=== PATIENT | female | born 1995 | race American Indian/Alaskan Native ===

== ENCOUNTER 2019-08-19 04:05 | Outpatient (CLI) | payer MEDICAID ==
[2019-08-19 06:45] VITALS: BP 114/57
== END 2019-08-19 07:12 | disposition home or self-care (01) ==
LOC: TRG 04:05
PROVIDERS: ATTEND Obstetrics & Gynecology
DX: O47.1 False labor at or after 37 completed weeks of gestation (principal); Z3A.39 39 weeks gestation of pregnancy
CPT/HCPCS: 59025

== ENCOUNTER 2019-08-30 02:40 | Inpatient (IN) | payer MEDICAID ==
[2019-08-30] MEDS ORDERED: ePHEDrine SULFATE 50 MG/1 ML INJ IV PRN (05:53)
[2019-08-30] MEDS ORDERED: fentaNYL 100 MCG/2 ML INJ IV PRN (05:53)
[2019-08-30] MEDS ORDERED: MINERAL OIL 30 ML ORAL LIQD PO PRN (05:53)
[2019-08-30] MEDS ORDERED: LIDOCAINE (2%) 20 MG/1 ML VIAL 20 ML MDV INFILTRATI ONE (05:53)
[2019-08-30] MEDS ORDERED: BUTORPHANOL 2 MG/1 ML INJ IV PRN (05:53)
[2019-08-30] MEDS ORDERED: ONDANSETRON 4 MG/2 ML INJ IV PRN ×2 (05:53→08:52)
[2019-08-30] MEDS ORDERED: TERBUTALINE 1 MG/1 ML INJ IVP PRN (05:53)
[2019-08-30] MEDS ORDERED: TERBUTALINE 1 MG/1 ML INJ SUB-Q PRN (05:53)
[2019-08-30] MEDS ORDERED: LACTATED RINGERS 1,000 ML IV SCH (06:00)
[2019-08-30] MEDS ORDERED: OXYTOCIN DRIP 30 UNITS/500 ML BAG IV SCH (06:00)
[2019-08-30 06:25] LABS: Hematocrit 35.1 % (30.3-42.9); Hemoglobin 11.4 gm/dl (10.1-14.3); Mean Corpuscular HGB Conc 33 % (30-34); Mean Corpuscular Volume 80 fl (79-97); Platelet Count 255 K/mm3 (140-440)
[2019-08-30] MEDS ORDERED: AMPICILLIN/NS 2 GM/100 ML 2 GM/100 ML BAG IV ONE ×2 (06:58)
--- NOTE | 2019-08-30 07:47 | History and Physical Report ---
History of Present Illness Date of examination: 08/30/19 Date of admission: 08/30/19 Chief complaint: Contractions History of present illness: Pt is a 23 yo at 40.6 weeks EGA who presents with regular uterine contractions. She reports positive FM and denies LOF or vaginal bleeding. She has received care with [facility] since 30 weeks EGa. 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 She is GBS negative. Past History Past Medical History: other (scoliosis) Past Surgical History: no surgical history Family/Genetic History: other (scoliosis) Social history: no significant social history - Obstetrical History Expected Date of Delivery: 08/24/19 Actual Gestation: 40 Week(s) 6 Day(s) : 3 Para: 2 Hx # Term Pregnancies: 2 Number of Pregnancies: 0 Spontaneous Abortions: 0 Induced : 0 Number of Living Children: 2 Medications and Allergies Allergies Allergy/AdvReac Type Severity Reaction Status Date / Time No Known Allergies Allergy Verified 08/19/19 05:45 Active Meds: Active Medications Butorphanol Tartrate (Stadol) 2 mg IV Q2H PRN PRN Reason: Pain , Severe (7-10) Ephedrine Sulfate (Ephedrine Sulfate) 10 mg IV Q2M PRN PRN Reason: Hypotension Fentanyl (Sublimaze) 100 mcg IV Q2H PRN PRN Reason: Labor Pain Last Admin: 08/30/19 06:42 Dose: 100 mcg Documented by: Oxytocin/Sodium Chloride (Pitocin/Ns 20 Unit/1000ml Drip) 20 units in 1,000 mls @ 125 mls/hr IV DIRECT SIXTO Oxytocin/Sodium Chloride (Pitocin/Ns 30 Unit/500ml) 30 units in 500 mls @ 1 mls/hr IV TITR SIXTO; Protocol Lactated Ringer's (Lactated Ringers) 1,000 mls @ 125 mls/hr IV DIRECT SIXTO Last Admin: 08/30/19 06:28 Dose: 125 mls/hr Documented by: Mineral Oil (Mineral Oil) 30 ml PO QHS PRN PRN Reason: Constipation Ondansetron HCl (Zofran) 4 mg IV Q8H PRN PRN Reason: Nausea And Vomiting Terbutaline Sulfate (Brethine) 0.25 mg SUB-Q ONCE PRN PRN Reason: Hyperstimulation/Hypertonicity Terbutaline Sulfate (Brethine) 0.25 mg IVP ONCE PRN PRN Reason: Hyperstimulation/Hypertonicity Review of Systems All systems: negative Genitourinary: contractions, no vaginal bleeding, no vaginal discharge, no leakage of fluid, no genital sores - Vital Signs Vital signs: Vital Signs Temp Pulse Resp BP 98.3 F 76 18 121/66 08/30/19 03:06 08/30/19 03:06 08/30/19 03:06 08/30/19 03:06 Temp Pulse Resp BP Pulse Ox 98.3 F 85 18 132/58 08/30/19 03:06 08/30/19 07:45 08/30/19 03:06 08/30/19 07:45 - Physical Exam Lungs: Positive: Normal air movement Abdomen: Positive: soft Genitourinary (Female): Positive: normal external genitalia, normal perenium Vagina: Positive: normal moisture Uterus: Positive: enlarged, normal contour Extremities: Positive: normal - Obstetrical FHR: category 1 Uterine Contraction Monitor Mode: External Cervical Dilatation: 6 Cervical Effacement Percentage: 80 station: -2 Uterine Contraction Frequency (min): 3 Uterine Contraction Pattern: Regular Uterine Contraction Intensity: Strong/Firm Results Result Diagrams: 08/30/19 06:00 Abnormal lab results 08/30/19 Range/Units 06:00 MCH 26 L (28-32) pg RDW 17.0 H (13.2-15.2) % All other labs normal. Assessment and Plan 23 yo at 40.6 weeks EGA Active labor GBS negative Admit to L&D Expectant management Pain relief as requested Anticipate
[2019-08-30] MEDS: OXYTOCIN 20 UNIT/1000ML DRIP 20 UNITS/1,000 ML BAG IV SCH ×2 (08:45→09:28)
[2019-08-30] MEDS ORDERED: ACETAMINOPHEN 325 MG TAB PO PRN (08:52)
[2019-08-30] MEDS ORDERED: diphenhydrAMINE 25 MG CAP PO PRN (08:52)
[2019-08-30] MEDS ORDERED: PROMETHAZINE 25 MG TAB PO PRN (08:52)
[2019-08-30] MEDS ORDERED: WITCH HAZEL/ GLYCERIN PAD TP PRN (08:52)
[2019-08-30] MEDS ORDERED: LANOLIN/ZINC/DIMETHICONE (LANSINOH) 7 GM TP PRN (08:52)
[2019-08-30] MEDS ORDERED: PROMETHAZINE 25 MG RECT SUPP PR PRN (08:52)
--- NOTE | 2019-08-30 08:59 | Procedure Note ---
OB Delivery Note - Delivery Date of Delivery: 08/30/19 Surgeon: RAMO PATINO ([facility]) Estimated blood loss: 100cc - Vaginal Delivery presentation: vertex Delivery position: OA Intrapartum events: none Delivery induction: none Delivery monitor: external FHT, external uterine Route of delivery: Delivery placenta: spontaneous Delivery cord: 3 umbilical vessels Episiotomy: none Delivery laceration: none Anesthesia: none Delivery comments: Excellent maternal effort progressed to of viable female infant. Head delivered OA, restituted LOT, shoulders followed easily. Infant to maternal abdomen. Bulb suction of mouth x1. Vigorous cry. Delayed cord clamping until cessation of pulsation. Apgars 8/9. Placenta delivered spontaneously and intact by Green mechanism. Moderate clots expressed from fundal pressure. Fundus firm. Pitocin infusing. No lacerations noted. Bonding well. - A at 1 minute: 8 at 5 minutes: 9 Infant Gender: Female
[2019-08-30] MEDS: IBUPROFEN 600 MG TAB PO SCH ×2 (09:32→19:11)
[2019-08-30 20:26] LABS: Hematocrit 31.7 % (30.3-42.9); Hemoglobin 10.1 gm/dl (10.1-14.3)
[2019-08-30] MEDS ORDERED: MAGNESIUM HYDROXIDE (MOM) ORAL LIQD UDC PO PRN (22:00)
[2019-08-30] MEDS: FERROUS SULFATE 325 MG TAB PO SCH (22:11)
[2019-08-31] MEDS: FERROUS SULFATE 325 MG TAB PO SCH ×2 (01:14→13:27)
[2019-08-31] MEDS: IBUPROFEN 600 MG TAB PO SCH ×2 (01:45→13:28)
[2019-08-31] MEDS ORDERED: TETANUS,DIPH,PERTUSS(ACELL) VACCINE 0.5 ML SYRINGE IM ONE (10:30)
--- NOTE | 2019-08-31 14:04 | Progress Note ---
Assessment and Plan PPD 1 S/P . DOING WELL. PLAN FOR DISCHARGE TODAY Subjective - Subjective Date of service: 08/31/19 Patient reports: appetite normal, voiding normally, pain well controlled, ambulating normally [place]: doing well Objective - Vital Signs Latest vital signs: Vital Signs Temp Pulse Resp BP BP Pulse Ox 08/31/19 08:42 98.3 F 67 20 110/71 97 08/31/19 00:22 98.0 F 81 24 99/56 97 08/30/19 22:25 98.3 F 64 20 111/62 97 08/30/19 16:23 98.0 F 71 18 116/78 Intake and Output 08/30/19 08/31/19 08/31/19 22:59 06:59 14:59 Intake Total 480 120 Balance 480 120 Intake: Oral 480 120 Other: Total, Intake Amount 480 120 # Voids Void 1 - Exam Lungs: Present: Clear to auscultation Abdomen: Present: normal appearance, soft Uterus: Present: normal, firm Extremities: Present: normal Incision: Present: normal, dry, intact
--- NOTE | 2019-08-31 14:06 | Discharge Summary ---
Providers - Providers Date of Admission: 08/30/19 02:41 Date of discharge: 08/31/19 Attending physician: KATYA IRAHETA MD Primary care physician: KATYA IRAHETA MD Hospitalization Reason for admission: active labor Delivery: Episiotomy: none Laceration: none Other procedures: none complications: none Discharge diagnosis: IUP at term delivered Hospital course: UNREMARKABLE Condition at discharge: Good Disposition: DC-01 TO HOME OR SELFCARE Plan - Provider Discharge Summary Activity: routine, no sex for 6 weeks, no heavy lifting 4 weeks, no strenuous exercise Diet: routine Instructions: routine Additional instructions: [] Smoking cessation referral if applicable(refer to patient education folder for contact #) [] Refer to [facility]'s [facility] Booklet Call your doctor immediately for: * Fever > 100.5 * Heavy vaginal bleeding ( >1 pad per hour) * Severe persistent headache * Shortness of breath * Reddened, hot, painful area to leg or breast * Drainage or odor from incision. * Keep incision clean and dry at all times and follow doctor's instructions regarding bathing/showering - Follow up plan Follow up: KATYA IRAHETA MD [Primary Care Provider] - 6 Weeks
[2019-08-31 16:12] VITALS: BP 111/63
== END 2019-08-31 18:35 | disposition home or self-care (01) | DRG 775 ==
LOC: LD 02:40 → TRG 02:40 → LD 02:41 → TRG 02:44 → OB 11:31
PROVIDERS: ADMIT Obstetrics & Gynecology; ATTEND Obstetrics & Gynecology
PROC: 10E0XZZ Delivery of Products of Conception, External Approach (ICD-10-PCS; principal; 2019-08-30)
PROC: 3E0234Z Introduction of Serum, Toxoid and Vaccine into Muscle, Percutaneous Approach (ICD-10-PCS; 2019-08-31)
DX: O80 Encounter for full-term uncomplicated delivery (principal); Z3A.40 40 weeks gestation of pregnancy; Z37.0 Single live birth; Z23 Encounter for immunization
CPT/HCPCS: 36415; 85014; 85018; 85027; 86592; 86850; 86900; 86901; G0378; J0290; J2590; J3010; J7120

== ENCOUNTER 2019-11-17 23:59 | Emergency (ER) | payer MEDICAID ==
[2019-11-18 00:18] VITALS: BP 118/60
[2019-11-18 01:11] LABS: Hematocrit 35.8 % (30.3-42.9); Hemoglobin 11.8 gm/dl (10.1-14.3); Mean Corpuscular Volume 85 fl (79-97); Red Blood Count 4.22 M/mm3 (3.65-5.03)
[2019-11-18 01:12] LABS: Basophils % (Auto) 0.7 % (0.0-1.8); Eosinophils % (Auto) 5.4 % (0.0-4.3); Lymphocytes % (Auto) 30.4 % (13.4-35.0); Mean Corpuscular HGB Conc 33 % (30-34); Platelet Count 259 K/mm3 (140-440); Red Cell Distribution Width 20.7 % (13.2-15.2)
[2019-11-18 01:13] LABS: Basophils # (Auto) 0.1 K/mm3 (0.0-0.1); Eosinophils # (Auto) 0.5 K/mm3 (0.0-0.4); Lymphocytes # (Auto) 2.6 K/mm3 (1.2-5.4); Monocytes # (Auto) 0.7 K/mm3 (0.0-0.8)
--- NOTE | 2019-11-18 01:28 | Emergency Department Report ---
ED Female HPI - General Chief complaint: Vaginal Bleeding Stated complaint: POSSIBLE MISCARRIAGE Source: patient Mode of arrival: Ambulatory Limitations: No Limitations - History of Present Illness Initial comments: 24-year-old -[place] female presents to the emergency room for heavy vaginal bleeding that started yesterday. Patient states she went through a whole pack of pads in 1 day. Patient states that she is changing every 15 minutes. Patient's last menstrual period was 10/16/2019. Patient reports she is no longer having pelvic pain. MD Complaint: vaginal bleeding Onset/Timin -: days(s) Severity scale (0 -10): 1 Consistency: constant Are you Now?: No Last Menstrual Period: 10/16/19 EDC: 07/22/20 Associated Symptoms: denies other symptoms - Related Data Sexually active: No Allergies Allergy/AdvReac Type Severity Reaction Status Date / Time No Known Allergies Allergy Verified 08/19/19 05:45 ED Review of Systems ROS: Stated complaint: POSSIBLE MISCARRIAGE Other details as noted in HPI Comment: All other systems reviewed and negative ED Past Medical Hx - Past Medical History Previous Medical History?: No Hx Hypertension: No Hx Diabetes: No Hx Deep Vein Thrombosis: No Hx Renal Disease: No Hx Sickle Cell Disease: No Hx Seizures: No Hx Asthma: No Hx HIV: No - Surgical History Past Surgical History?: No - Social History Smoking Status: Former Smoker Substance Use Type: None ED Physical Exam - General Limitations: No Limitations General appearance: alert, in no apparent distress - Head Head exam: Present: atraumatic, normocephalic - Eye Eye exam: Present: normal appearance - ENT ENT exam: Present: mucous membranes moist - Respiratory Respiratory exam: Present: normal lung sounds bilaterally. Absent: respiratory distress - Cardiovascular Cardiovascular Exam: Present: regular rate, normal rhythm. Absent: systolic murmur, diastolic murmur, rubs, gallop - GI/Abdominal GI/Abdominal exam: Present: soft, normal bowel sounds - Extremities Exam Extremities exam: Present: normal inspection, full ROM - Back Exam Back exam: Present: normal inspection - Neurological Exam Neurological exam: Present: alert, oriented X3 - Psychiatric Psychiatric exam: Present: normal affect, normal mood - Skin Skin exam: Present: warm, dry, intact, normal color. Absent: rash ED Course Vital Signs 11/18/19 00:09 Temperature 98.7 F Pulse Rate 82 Respiratory 18 Rate Blood Pressure 118/60 O2 Sat by Pulse 96 Oximetry ED Medical Decision Making - Lab Data Result diagrams: 11/18/19 00:28 - Medical Decision Making 24-year-old -Q[place] female presents to the emergency room for heavy vaginal bleeding that started yesterday. Patient states she went through a whole pack of pads in 1 day. Patient states that she is changing every 15 minutes. Patient's last menstrual period was 10/16/2019. Patient reports she is no longer having pelvic pain. Patient's labs are stable shows negative test no signs of anemia. Patient is currently having her menstrual cycle. Patient is to follow-up with her HOSTED SERVICES ANALYST she has any further concerns. Critical care attestation.: If time is entered above; I have spent that time in minutes in the direct care of this critically ill patient, excluding procedure time. ED Disposition Clinical Impression: Abnormal bleeding in menstrual cycle Disposition: DC-01 TO HOME OR SELFCARE Is pt being admited?: No Does the pt Need Aspirin: No Condition: Stable Instructions: Menorrhagia (ED) Additional Instructions: Patient's labs are stable shows negative test no signs of anemia. Patient is currently having her menstrual cycle. Patient is to follow-up with her HOSTED SERVICES ANALYST she has any further concerns. Referrals: [facility] [Provider Group] - 3-5 Days
[2019-11-18 01:50] LABS: Bilirubin,Urine NEG (Negative); Blood,Urine LG (Negative); Color,Urine Yellow (Yellow); Mucus,Urine FEW /HPF; Protein,Urine <15 mg/dL mg/dL (Negative); RBC,Urine > 182.0 /HPF (0.0-6.0); Urobilinogen,Urine < 2.0 mg/dL (<2.0)
== END 2019-11-18 01:47 | disposition home or self-care (01) ==
LOC: ED 23:59
DX: N92.4 Excessive bleeding in the premenopausal period (principal); Z87.891 Personal history of nicotine dependence
CPT/HCPCS: 36415; 81001; 84702; 84703; 85025; 86900; 86901; 87086

== ENCOUNTER 2021-05-12 05:38 | Inpatient (IN) | payer MEDICAID ==
[2021-05-12] MEDS ORDERED: TERBUTALINE 1 MG/1 ML INJ SUB-Q PRN (11:00)
[2021-05-12] MEDS ORDERED: ONDANSETRON 4 MG/2 ML INJ IV PRN ×2 (11:00→21:18)
[2021-05-12] MEDS ORDERED: LACTATED RINGERS 1,000 ML IV SCH (11:00)
[2021-05-12] MEDS ORDERED: NALOXONE 0.4 MG/1 ML INJ IV PRN (11:00)
[2021-05-12] MEDS ORDERED: CARBOPROST TROMETHAMINE 250 MCG/1 ML INJ IM PRN (11:00)
[2021-05-12] MEDS ORDERED: ePHEDrine SULFATE 50 MG/1 ML INJ IV PRN (11:00)
[2021-05-12] MEDS ORDERED: miSOPROStol 200 MCG TAB PR PRN (11:00)
[2021-05-12] MEDS ORDERED: ACETAMINOPHEN 325 MG TAB PO PRN (11:00)
[2021-05-12] MEDS ORDERED: LIDOCAINE (2%) 20 MG/1 ML VIAL 20 ML MDV INFILTRATI SCH (11:00)
[2021-05-12] MEDS ORDERED: LOPERAMIDE 2 MG CAP PO PRN (11:00)
[2021-05-12] MEDS ORDERED: METHYLERGONOVINE MALEATE 0.2 MG/ML VIAL IM PRN (11:00)
[2021-05-12] MEDS ORDERED: MINERAL OIL 30 ML ORAL LIQD PO PRN (11:00)
[2021-05-12] MEDS ORDERED: BUTORPHANOL 2 MG/1 ML INJ IV PRN (11:00)
[2021-05-12] MEDS ORDERED: OXYTOCIN DRIP 30 UNITS/500 ML BAG IV SCH ×3 (11:00→21:18)
[2021-05-12] MEDS ORDERED: OXYTOCIN 10 UNIT/1 ML INJ IM PRN (11:00)
[2021-05-12] MEDS: fentaNYL 100 MCG/2 ML INJ IV PRN ×2 (14:48→18:15)
[2021-05-12 16:55] LABS: Hematocrit 31.8 % (30.3-42.9); Hemoglobin 10.3 gm/dl (10.1-14.3); Mean Corpuscular HGB Conc 33 % (30-34); Mean Corpuscular Volume 79 fl (79-97); Platelet Count 297 K/mm3 (140-440); Red Blood Count 4.01 M/mm3 (3.65-5.03); Red Cell Distribution Width 18.3 % (13.2-15.2)
--- NOTE | 2021-05-12 18:22 | History and Physical Report ---
History of Present Illness Date of examination: 05/12/21 Date of admission: 05/12/21 10:46 Chief complaint: contractions History of present illness: 25 year old THANH 05/15/21 at 39w4d who presents with regular painful contractions. Her cervix remained 4 cm over prolonged period of observation, then she began having more frequent contractions and progressed to 9 cm. She has had care at [facility] since 17 wks complicated by genital herpes without lesion or prodrome. She is GBS negative. Past History Past Medical History: other (Scoliosos) Past Surgical History: no surgical history ACIDIZER History: herpes (no lesion or prodrome ) Family/Genetic History: none Social history: no significant social history - Obstetrical History Expected Date of Delivery: 05/15/21 Actual Gestation: 39 Week(s) 5 Day(s) : 4 Para: 3 Hx # Term Pregnancies: 3 Number of Pregnancies: 0 Spontaneous Abortions: 0 Induced : 0 Number of Living Children: 3 Medications and Allergies Allergies Allergy/AdvReac Type Severity Reaction Status Date / Time No Known Allergies Allergy Verified 08/19/19 05:45 Home Medications Medication Instructions Recorded Confirmed Last Taken Type No Known Home Medications [No 05/12/21 05/12/21 Unknown History Reported Home Medications] Active Meds: Active Medications Acetaminophen (Acetaminophen 325 Mg Tab) 650 mg PO Q4H PRN PRN Reason: Pain, Mild (1-3) Butorphanol Tartrate (Butorphanol 2 Mg/1 Ml Inj) 1 mg IV Q2H PRN PRN Reason: Pain, Moderate(4-6) LABOR PAIN Carboprost Tromethamine (Carboprost Tromethamine 250 Mcg/1 Ml Inj) 250 mcg IM ONCE PRN PRN Reason: Uterine Bleeding Ephedrine Sulfate (Ephedrine Sulfate 50 Mg/1 Ml Inj) 10 mg IV Q2M PRN PRN Reason: Hypotension Fentanyl (Fentanyl 100 Mcg/2 Ml Inj) 100 mcg IV Q2H PRN PRN Reason: Pain,Severe (7-10) LABOR PAIN Last Admin: 05/12/21 14:48 Dose: 100 mcg Documented by: Oxytocin/Sodium Chloride (Pitocin/Ns 30 Unit/500ml) 30 units in 500 mls @ 2 mls/hr IV TITR SIXTO; Protocol Last Admin: 05/12/21 14:34 Dose: 2 mls/hr, 2 mls/hr Documented by: Lactated Ringer's (Lactated Ringers) 1,000 mls @ 125 mls/hr IV DIRECT SIXTO Last Admin: 05/12/21 14:33 Dose: 125 mls/hr Documented by: Oxytocin/Sodium Chloride (Pitocin/Ns 30 Unit/500ml) 30 units in 500 mls @ 40 mls/hr IV TITR SIXTO; Protocol Lidocaine (Lidocaine (2%) 20 Mg/1 Ml Vial 20 Ml Mdv) 20 ml INFILTRATI ONCE SIXTO Stop: 05/13/21 10:59 Loperamide HCl (Loperamide 2 Mg Cap) 2 mg PO ONCE PRN PRN Reason: give with Hemabate Methylergonovine Maleate (Methylergonovine Maleate 0.2 Mg/Ml Vial) 0.2 mg IM ONCE PRN PRN Reason: Uterine Bleeding Mineral Oil (Mineral Oil 30 Ml Oral Liqd) 30 ml PO QHS PRN PRN Reason: Constipation Misoprostol (Misoprostol 200 Mcg Tab) 800 mcg MD ONCE PRN PRN Reason: Uterine Bleeding Naloxone HCl (Naloxone 0.4 Mg/1 Ml Inj) 0.1 mg IV Q2MIN PRN PRN Reason: Res Rate </= 8 or 02 SAT < 92% Ondansetron HCl (Ondansetron 4 Mg/2 Ml Inj) 4 mg IV Q8H PRN PRN Reason: Nausea And Vomiting Oxytocin (Oxytocin 10 Unit/1 Ml Inj) 10 unit IM ONCE PRN PRN Reason: Uterine Bleeding Terbutaline Sulfate (Terbutaline 1 Mg/1 Ml Inj) 0.25 mg SUB-Q ONCE PRN PRN Reason: Hyperstimulation/Hypertonicity Review of Systems All systems: negative - Vital Signs Vital signs: Vital Signs Pulse BP 80 125/73 05/12/21 06:38 05/12/21 06:38 Temp Pulse Resp BP Pulse Ox 98.2 F 87 18 102/59 98 05/12/21 08:13 05/12/21 17:01 05/12/21 08:13 05/12/21 16:18 05/12/21 17:01 - Physical Exam Breasts: Positive: deferred Abdomen: Positive: soft (gravid ) Uterus: Positive: enlarged (gravid ) Extremities: Positive: normal - Obstetrical FHR: auscultation normal Uterine Contraction Monitor Mode: External Cervical Dilatation: 9.5 Cervical Effacement Percentage: 100 station: 0 Uterine Contraction Pattern: Regular Uterine Tone Measurement Phase: Resting Uterine Contraction Intensity: Strong/Firm Results Result Diagrams: 05/12/21 15:58 Abnormal lab results 05/12/21 Range/Units 15:58 WBC 13.5 H (4.5-11.0) K/mm3 MCH 26 L (28-32) pg RDW 18.3 H (13.2-15.2) % All other labs normal. Assessment and Plan A: IUP at 39w4d Transitional Labor Genital Herpes without lesion or prodrome GBS Negative P: Admit to labor and delivery AROM- clear fluid Routine intrapartum care Closely monitor maternal and status
--- NOTE | 2021-05-12 18:23 | Event Note ---
Date: 05/12/21 Pt noted to be crying during ultrasound procedure due to contraction pain. Cervix rechecked and noted to be /-2/Intact. Routine intrapartum care.
--- NOTE | 2021-05-12 18:35 | Ultrasound Report ---
ULTRASOUND OBSTETRIC LIMITED ULTRASOUND BIOPHYSICAL PROFILE INDICATION / CLINICAL INFORMATION: well-being. Clinical Gestational Age (GA): 39.4 weeks.days COMPARISON: None available. FINDINGS: BREATHING MOVEMENT = 0 GROSS BODY MOVEMENT = 2 TONE = 2 QUALITATIVE AMNIOTIC FLUID VOLUME = 2 TOTAL BIOPHYSICAL SCORE = 6/8 HEART RATE (beats per minute): 136 AMNIOTIC FLUID INDEX (cm) = 7.2 (normal = 7-24 cm) PRESENTATION: Cephalic. ADDITIONAL FINDINGS: None. IMPRESSION: 1. Biophysical Score = 6/8 2. MICHELLE 7.2 cm. Signer Name: Jayant Douglas MD Signed: 05/12/2021 6:31 PM Workstation Name: [id number]
--- NOTE | 2021-05-12 19:09 | Procedure Note ---
OB Delivery Note - Delivery Date of Delivery: 05/13/21 Surgeon: EVAN WHITLEY Estimated blood loss: 300cc - Vaginal Delivery presentation: vertex Delivery position: OA Delivery augmentation: rupture of membranes Delivery monitor: external FHT, external uterine Route of delivery: Delivery placenta: spontaneous Episiotomy: none Delivery laceration: none Anesthesia: intravenous - A at 1 minute: 8 at 5 minutes: 9 Gender: Male (3360g (7lb 7oz) @ 1858 pm)
[2021-05-12] MEDS ORDERED: PROMETHAZINE 25 MG TAB PO PRN (21:18)
[2021-05-12] MEDS ORDERED: diphenhydrAMINE 25 MG CAP PO PRN (21:18)
[2021-05-12] MEDS ORDERED: WITCH HAZEL/ GLYCERIN PAD TP PRN (21:18)
[2021-05-12] MEDS ORDERED: BENZOCAINE/MENTHOL 20/0.5% TOP SPRAY 56 GM TP PRN (21:18)
[2021-05-12] MEDS ORDERED: LANOLIN/ZINC/DIMETHICONE (LANSINOH) 7 GM TP PRN ×2 (21:18)
[2021-05-12] MEDS ORDERED: HYDROcodone/ACETAMINOPHEN 5-325 MG TAB PO PRN (21:18)
[2021-05-12] MEDS ORDERED: MAGNESIUM HYDROXIDE (MOM) ORAL LIQD UDC PO PRN (21:18)
[2021-05-12] MEDS ORDERED: PROMETHAZINE 25 MG RECT SUPP PR PRN (21:18)
[2021-05-12] MEDS: IBUPROFEN 600 MG TAB PO SCH (22:01)
[2021-05-12] MEDS: FERROUS SULFATE 325 MG TAB PO SCH (23:51)
[2021-05-13] MEDS: IBUPROFEN 600 MG TAB PO SCH ×4 (04:45→23:33)
--- NOTE | 2021-05-13 08:29 | Progress Note ---
Assessment and Plan A: PPD#1 s/p at term. P: Continue with routine care with discharge anticipated this evening. Subjective - Subjective Date of service: 05/13/21 Principal diagnosis: PPD#1 s/p at term Interval history: PPD#1 s/p at term. Patient is feeling well, she reports minimal pain and decreasing lochia. Patient reports: appetite normal, voiding normally, pain well controlled, ambu lating normally : doing well Objective - Vital Signs Latest vital signs: Vital Signs Temp Pulse Resp BP BP Pulse Ox Pulse Ox 05/13/21 07:39 98.2 F 84 20 110/56 97 05/13/21 05:20 98 05/13/21 04:58 98.2 F 75 20 116/72 99 05/13/21 03:45 98 05/13/21 01:35 99 05/13/21 00:38 97.9 F 91 H 18 109/56 97 05/12/21 23:30 99 05/12/21 21:20 98 05/12/21 20:54 98.5 F 78 18 116/58 100 05/12/21 20:13 80 132/58 05/12/21 19:57 77 116/59 05/12/21 19:44 81 121/59 05/12/21 19:31 98.3 F 90 18 127/64 05/12/21 19:27 81 135/68 05/12/21 19:21 98 05/12/21 19:12 90 127/64 05/12/21 17:01 87 98 05/12/21 16:56 91 H 96 05/12/21 16:51 81 99 05/12/21 16:46 93 H 100 05/12/21 16:41 85 99 05/12/21 16:36 81 98 05/12/21 16:34 84 93 05/12/21 16:31 85 97 05/12/21 16:26 94 H 99 05/12/21 16:21 88 99 05/12/21 16:18 90 102/59 05/12/21 16:17 87 93 05/12/21 16:16 91 H 97 05/12/21 16:11 93 H 100 05/12/21 16:06 87 99 05/12/21 16:01 91 H 99 05/12/21 16:00 98.2 F 08/09/21 15:56 97 H 98 05/12/21 15:53 74 89 05/12/21 15:51 103 H 99 05/12/21 15:46 81 97 05/12/21 15:45 78 88 05/12/21 15:41 81 97 05/12/21 15:40 74 91 05/12/21 15:36 96 H 96 05/12/21 15:31 82 95 05/12/21 15:28 77 91 05/12/21 15:26 102 H 96 05/12/21 15:21 82 98 05/12/21 15:19 85 121/69 05/12/21 15:16 92 H 100 05/12/21 15:11 84 99 05/12/21 15:06 82 96 05/12/21 15:05 86 94 05/12/21 15:01 86 97 05/12/21 14:56 86 93 05/12/21 14:51 93 H 99 05/12/21 14:46 85 99 05/12/21 14:41 99 H 100 05/12/21 14:36 84 100 05/12/21 14:31 86 99 05/12/21 14:26 91 H 100 05/12/21 14:21 86 99 05/12/21 14:17 93 H 109/73 05/12/21 14:16 87 99 05/12/21 14:11 92 H 99 05/12/21 14:06 79 98 05/12/21 14:01 85 97 05/12/21 14:00 98.3 F 05/12/21 13:56 97 H 99 05/12/21 13:51 78 99 05/12/21 13:46 82 99 05/12/21 13:41 87 100 05/12/21 13:36 89 100 05/12/21 13:31 94 H 100 05/12/21 13:26 97 H 100 05/12/21 13:21 104 H 99 05/12/21 13:16 84 99 05/12/21 13:11 81 99 05/12/21 13:06 89 100 05/12/21 13:01 90 98 05/12/21 12:56 89 98 05/12/21 12:51 85 98 05/12/21 12:46 86 99 05/12/21 12:41 80 99 05/12/21 12:36 97 H 96 05/12/21 12:31 89 98 05/12/21 12:26 86 97 05/12/21 12:21 79 98 05/12/21 12:16 94 H 97 05/12/21 12:15 75 91 05/12/21 12:11 84 100 05/12/21 12:06 90 99 05/12/21 12:01 92 H 97 05/12/21 11:56 81 100 05/12/21 11:51 84 100 05/12/21 11:00 98.1 F Intake and Output 05/12/21 05/13/21 05/13/21 23:59 07:59 15:59 Output Total 900 1000 Balance -900 -1000 Output: Urine 900 1000 Void 900 1000 Other: Total, Output Amount 600 300 # Voids Void 1 1 Weight 94.347 kg Estimated Blood Loss 200 - Labs Labs: Abnormal lab results 05/12/21 Range/Units 15:58 WBC 13.5 H (4.5-11.0) K/mm3 MCH 26 L (28-32) pg RDW 18.3 H (13.2-15.2) %
[2021-05-13 08:58] LABS: Hematocrit 33.6 % (30.3-42.9); Hemoglobin 10.6 gm/dl (10.1-14.3)
[2021-05-13] MEDS: FERROUS SULFATE 325 MG TAB PO SCH ×2 (10:25→22:01)
[2021-05-13] MEDS ORDERED: MEASLES, MUMPS & RUBELLA 12,500 UNIT/0.5 ML VACCINE SUB-Q ONE (21:00)
[2021-05-14] MEDS ORDERED: TETANUS,DIPH,PERTUSS(ACELL) VACCINE 0.5 ML SYRINGE IM ONE (06:00)
[2021-05-14] MEDS: IBUPROFEN 600 MG TAB PO SCH (06:28)
--- NOTE | 2021-05-14 06:51 | Discharge Summary ---
Providers - Providers Date of Admission: 05/12/21 10:46 Date of discharge: 05/14/21 Attending physician: MARY FREY 05/12/21 21:18 Consult to [facility] [CONS] Routine Reason For Exam: assistance with , SNS Primary care physician: MARY FREY Hospitalization Delivery: Episiotomy: none Laceration: none Other procedures: none complications: none Discharge diagnosis: IUP at term delivered Condition at discharge: Good Disposition: DC-01 TO HOME OR SELFCARE Plan - Discharge Medications Prescriptions: Ferrous Sulfate [Ferrous Sulfate 324 MG] 325 mg PO Q24HR #30 tablet. Ibuprofen [Motrin] 600 mg PO Q8H PRN #30 tablet PRN Reason: Pain - Provider Discharge Summary Activity: routine, no sex for 6 weeks, no heavy lifting 4 weeks, no strenuous exercise Diet: routine Instructions: routine Additional instructions: [] Smoking cessation referral if applicable(refer to patient education folder for contact #) [] Refer to [facility]'s [facility] Booklet Call your doctor immediately for: * Fever > 100.5 * Heavy vaginal bleeding ( >1 pad per hour) * Severe persistent headache * Shortness of breath * Reddened, hot, painful area to leg or breast * Drainage or odor from incision. * Keep incision clean and dry at all times and follow doctor's instructions regarding bathing/showering - Follow up plan Follow up: MARY FREY MD [Primary Care Provider] - 14 Days
[2021-05-14] MEDS ORDERED: medroxyPROGESTERone ACETATE 150 MG/ML SYRINGE IM SCH (09:00)
[2021-05-14 12:35] VITALS: BP 117/68
[2021-05-14] MEDS: FERROUS SULFATE 325 MG TAB PO SCH (15:00)
== END 2021-05-14 15:15 | disposition home or self-care (01) | DRG 774 ==
LOC: TRG 05:38 → APU 05:39 → LD 10:46 → TRG 10:46 → LD 14:38 → OB 20:55
PROVIDERS: ADMIT Obstetrics & Gynecology; ATTEND Obstetrics & Gynecology
PROC: 10E0XZZ Delivery of Products of Conception, External Approach (ICD-10-PCS; principal; 2021-05-12)
PROC: 10907ZC Drainage of Amniotic Fluid, Therapeutic from Products of Conception, Via Natural or Artificial Opening (ICD-10-PCS; 2021-05-12)
PROC: 3E0234Z Introduction of Serum, Toxoid and Vaccine into Muscle, Percutaneous Approach (ICD-10-PCS; 2021-05-14)
DX: O98.32 Other infections with a predominantly sexual mode of transmission complicating childbirth (principal); Z3A.39 39 weeks gestation of pregnancy; Z37.0 Single live birth; Z20.822 Contact with and (suspected) exposure to COVID-19; Z23 Encounter for immunization; A60.00 Herpesviral infection of urogenital system, unspecified
CPT/HCPCS: 36415; 59025; 76815; 76819; 85014; 85018; 85027; 86592; 86850; 86900; 86901; 96360; G0378; J1050; J2590; J3010; J7120; U0003